=== PATIENT | female | born 2005 | race Two or more races ===

== ENCOUNTER 2025-04-18 11:14 | Outpatient (AMB) | payer MEDICAID, SELFPAY ==
[2025-04-18 11:28] VITALS: BP 112/77; PULSE 86; RESP 17; TEMP 36.9; O2SAT 97; BMI 44.1
--- NOTE | 2025-04-18 11:28 | OBCLNT_ITS ---
Vital Signs 04/18/25 11:28 Height 1.57 m Height Method Measured Weight 109.429 kg Weight Measurement Method Standing Scale BMI 44.1 BP 112/77 Blood Pressure Source Automatic Cuff Blood Pressure Location Right Upper Arm Position Sitting Respiration 17 Pulse 86 Pulse Source Monitor Temp 98.5 F Temp Source Temporal Artery Scan Pulse Oximetry (%) 97 Oxygen Delivery Method Room Air Allergies/Home Meds Allergies & Medications Allergies No Known Allergies Allergy (Verified 04/18/25 11:29) Medication Reconciliation aspirin 81 mg tablet,delayed release (Adult Aspirin Regimen) 81 mg PO QDAY #60 tabs 04/18/25 [Rx] vitamin-ferrous fumarate 28 mg iron-folic acid 800 mcg tablet ( Vitamins with Minerals) 1 tab PO QDAY #60 tabs 04/18/25 [Rx] Intake Visit Data Collection New Patient or Established: New Patient (never been to [facility]) Reason for Visit:: OBI Consent obtained for Telemed Visit: No Seen by Clinical Staff ONLY (RN/MA): No Biomed Tech Required: No Do You Feel Safe at Home: Yes Authorities Contacted: N/A PCP or OBGYN visit in last 3 months: No Hx Now: Yes Are you currently on any form of Control: No Pain Present Currently: No Pain Scale Used: Ha-Paulson/Numerical Pain scale:: 0 Smoking Status Smoking Status: Never smoker Questionnaires Covid-19 Vaccine Questionnaire Has patient been vacinated for Covid-19 Have you been vacinated for Covid-19: No PHQ-9 PHQ-2 Over the last 2 weeks, how often have you been bothered by any of the following problems? 1. Little interest or pleasure in doing things: not at all 2. Feeling down, depressed, or hopeless: not at all Total score: 0 PHQ-9 3. Trouble falling or staying asleep, or sleeping too much: Not at all 4. Feeling tired or having little energy: Not at all 5. Poor appetite or overeating: Not at all 6. Feeling bad about yourself - or that you are a failure or have let yourself or your family down: Not at all 7. Trouble concentrating on things, such as reading the newspaper or watching television: Not at all 8. Moving or speaking so slowly that other people could have noticed? - Or the opposite - being so fidgety or restless that you have been moving around a lot more than usual: not at all 9. Thoughts that you would be better off or of hurting yourself in some way: Not at all Total score: 0 If you checked off any problems, how difficult have these problems made it for you to do your work, take care of things at home, or get along with other people?: not difficult at all Source: Developed by Drs. Aston Ramirez, Elizabeth Bro, Armando Sanchez and colleagues, with an educational tami from [employer]. Social History Living Situation History Lives With: Family Housing: House Tobacco History Smoking Status: Never smoker Alcohol History Alcohol Intake: Never Domestic Abuse History Do You Feel Safe at Home: Yes History of Present Illness HPI Narrative 19 yo for OBI. LMP 01/28/25. EDC 11/05/25. regular menses . q30. 2 menses in january. denies problem with first 2 deliveries. denies existing PMH, denies social habit and surgery. denies any sab s/s. OB Initial Visit OB Flowsheet OB Flowsheet Initial Weight: Not Recorded Date -?-?-?-?-?-?-?-?-?-?-?-?- EGA Weight BP Alb Glu CTX Pres Fundal ht FHR Mov Dilation Station Effacement Hx Notes Visit Note 04/18/25 -?-?-?-?-?-?-?-?-?-?-?-?- 11w 3d 109.429 kg 112/77 unknown 10 145 absent 19 yo , 11w3 by poor dates. denies sab complaints,no leaking or bleeding OB panel and NIPT today, schedule MFM appointment, discuss sab precaution, refill PNV and low dose asa, carrier screen, A1c ordered. rtc 4 week obc Menstrual History Menstrual reliability: definite Flow: heavy Menstrual regularity: regular Monthly: Yes Age at menarche: 11 On control pills at conception: No Date of positive home test: 03/16/25 OB History : 3 Para: 2 Hx # Pregnancies: 1 Hx Total # of Abortions (Spontaneous & Elective): 0 # of Living Children: 2 Delivery History 1st : Child's name: SLADE date: 12/03/20 sex: female Gestational age at delivery (weeks): 40 Delivery type: vaginal History of depression before or after : No 2nd : Child's name: GARETH date: 12/30/22 sex: female Gestational age at delivery (weeks): 37 Delivery type: vaginal History of depression before or after : No Infection History & Risk Evaluation History of STDs: none HIV risk evaluation: low risk Hepatitis B risk evaluation: low risk Patient or partner has history of Genital Herpes: No Genetic Screening & History Genetic Screening/Teratology Counseling - Includes patient, baby's father, or anyone in either family with: 1. Patient's age 35 years or older as of estimated date of delivery: No 2. Thalassemia (Maltese, Georgian, Mediterranean, or Background); MCV less than 80: No 3. Neural Tube Defect (Meningomyelocele, Spina Bifida, or Anencephaly): No 4. Congenital Heart Defect: No 5. Down Syndrome: No 6. Ezio-Sachs (Ashkenazi Pentecostal, Cajun, Mosotho Greene): No 7. Kassandra Disease (Ashkenazi Pentecostal): No 8. Familial Dysautonomia (Ashkenazi Pentecostal): No 9. Sickle Cell Disease or Trait (): No 10. Hemophilia or other blood disorders: No 11. Muscular Dystrophy: No 12. Cystic Fibrosis: No 13. Miles's Chorea: No 14. Mental Retardation/Autism: No 15. Other inherited genetic or chromosomal disorder: No 16. Maternal Metabolic Disorder (EG,TYPE 1 Diabetes, PKU): No 17. Patient or baby's father had a child with defects not listed above: No 18. Recurrent loss or a stillbirth: No 19. Medications (including supplements, vitamins, herbs or otc drugs)/illicit/re creational drugs/alcohol since last menstrual period: No 20. Any other: No Infection History 1. Live with someone with TB or exposed to TB: No 2. Rash or viral illness since last menstrual period: No 3. Hepatitis B,C: No Other (see comments) Source: [employer] Review of Systems Review of Systems Systems Reviewed: All systems reviewed, normal except as documented Exam General Limitations: no limitations General Appearance: alert, in no apparent distress, comfortable, cooperative, healthy appearing, well developed and well groomed Head Head exam: atraumatic, normocephalic and normal inspection Chest Chest inspection: Present normal inspection and symmetric chest wall rise Resp Respiratory exam: Present normal lung sounds bilaterally Psych Psychiatric exam: Present normal affect and normal mood Office Procedures OB Clinic LOC & Office Proc's Nursing/Assessment Patient Status: Established Patient OB Clinic Nursing Assessment: Medication Reconciliation, Update PMH in EMR and Vital Signs OB Clinic Coordination of Care: Complex Care and Chronic Disease 1-5, Consent,records obtained, informed consent, Education Simp Pt/Fam and 4+ Authorizations needed Special Needs: Heart tones Established Patient Charge Established Patient Point Assignment: 130 Established Patient Point Charge: EP Level 4 (120-155) Assessment & Plan Diagnosis / Problem List (1) Encounter for supervision of high risk in first trimester, antepartum: Status: Acute (2) Maternal obesity syndrome in first trimester: Status: Acute Plan discuss diet and weight gain, OB panel, NIPT,carrier screen and A1c today, refill pnv, low dose asa, schedule MFM appointment. sab precaution, rtc 4 wk obc Additional Plan Follow Up: 4 Weeks (obc)
== END 2025-04-18 11:52 | disposition home or self-care (01) ==
LOC: HODSOBC 11:14
PROVIDERS: Supervising Provider Advanced Practice Midwife; Visit Provider Advanced Practice Midwife
DX: O09.891 Supervision of other high risk pregnancies, first trimester (principal); O99.211 Obesity complicating pregnancy, first trimester; O26.841 Uterine size-date discrepancy, first trimester; Z3A.11 11 weeks gestation of pregnancy
CPT/HCPCS: 99214; G0463

== ENCOUNTER 2025-05-02 13:40 | Emergency (ER) | payer MEDICAID, SELFPAY ==
[2025-05-02 13:41] VITALS: BMI 43.9
[2025-05-02 13:49] VITALS: BP 131/85; PULSE 102; RESP 19; TEMP 37.1; O2SAT 98
[2025-05-02] MEDS: ONDANSETRON ODT 4 MG TABRAP PO (14:08)
--- NOTE | 2025-05-02 14:11 | PC.LAC ---
POISON CONTROL CONTACTED AND SPOKE WITH FREDDY. POISON CONTROL RECOMMENDATIONS FOR CMP, O2 FOR COMFORT, ZOFRAN FOR NAUSEA, AND MONITOR PATIENT TILL BACK TO BASELINE. DAY TRADER CHERYL MADE AWARE.
[2025-05-02 15:07] LABS: Alanine Aminotransferase 10 U/L (10-49); Albumin, Serum 4.3 gm/dL (3.5-5.0); Albumin/Globulin Ratio 1.5 (1.2-2.2); Alkaline Phosphatase 59 U/L (46-116); Anion Gap 12 (7-16); Aspartate Amino Transferase 16 U/L (0-34); BUN/Creatinine Ratio 8 Ratio (12-20); Bilirubin,Total 0.3 mg/dL (0.3-1.2); Blood Urea Nitrogen < 5 mg/dL (9-23); Calcium 9.1 mg/dL (8.3-10.6); Calcium (Corrected) 9.1 mg/dL (8.5-10.1); Carbon Dioxide 22.1 mMol/L (20.0-31.0); Chloride 105 mMol/L (98-107); Creatinine (Component) 0.6 mg/dL (0.6-1.3); Estimated Creatinine Clearance 175.2 mL/min (>60); Globulin 2.9 gm/dL (2.3-3.5); Glucose 90 mg/dL (74-106); Osmolality,Calculated 274 (275-295); Potassium 3.8 mMol/L (3.4-5.1); Sodium 139 mMol/L (136-145); Total Protein 7.2 gm/dL (5.7-8.2); eGFR > 60 See Note
--- NOTE | 2025-05-02 15:13 | EDNOTE_ITS ---
<Statement entered by Christie To MD - 05/02/25 17:10> As co-signing physician, I was present and available for consult prn. I concur with the plan and care as documented by the midlevel provider. ED Dizzyness RME/HPI General Chief Complaint: Dizziness Stated Complaint: DIZZY AND NAUSEA AFTER CLEANING THE MINI FRIDGE Time Seen by Provider: 05/02/25 13:50 Source: patient Arrival date/time: 05/02/25 13:40 19-year-old female with no known medical history presents to the emergency room with a chief complaint of dizziness and nausea. Patient states she was cleaning in her kitchen and began to inhale the smell of Clorox and other chemicals and began to feel the symptoms. Mode of arrival: ambulatory Limitations: no limitations Related Data Previous Rx's ?Medication ?Instructions ?Recorded aspirin 81 mg tablet,delayed 81 mg PO QDAY #60 tabs release (Adult Aspirin Regimen) vitamin-ferrous fumarate 1 tab PO QDAY #60 ta bs 04/18/25 28 mg iron-folic acid 800 mcg tablet ( Vitamins with Minerals) acetaminophen 325 mg tablet 325 mg PO QID PRN pain #60 tabs 04/27/25 (Tylenol) ondansetron HCl 4 mg tablet 4 mg PO Q8H PRN nausea and 04/27/25 vomiting #60 tabs Allergies Allergy/AdvReac Type Severity Reaction Status Date / Time No Known Allergies Allergy Verified 05/02/25 13:41 Review of Systems Review of Systems Systems Reviewed: All systems reviewed, normal except as documented Constitutional Constitutional: Reports system reviewed and no additional complaints, except as documented, Denies fatigue, Denies fever(s), Reports headache(s) and Reports weakness Eyes Eyes: Reports system reviewed and no additional complaints, except as documented, Denies blurry vision and Denies change in vision ENT Ears, Nose, Mouth, and Throat: Reports system reviewed and no additional complaints, except as documented, Denies otalgia, Reports headache(s), Denies nasal congestion, Denies throat swelling and Reports vertigo Cardiovascular Cardiovascular: Reports system reviewed and no additional complaints, except as documented, Denies chest pain, Denies dyspnea and Denies dyspnea on exertion Respiratory Respiratory: Reports system reviewed and no additional complaints, except as documented, Denies chest congestion, Denies cough, Denies dyspnea, Denies dyspnea on exertion and Denies wheezing Gastrointestinal Gastrointestinal: Reports system reviewed and no additional complaints, except as documented, Denies abdominal pain, Denies cramping, Denies nausea and Denies vomiting Genitourinary Genitourinary: Reports system reviewed and no additional complaints, except as documented Musculoskeletal Musculoskeletal: Reports system reviewed and no additional complaints, except as documented and Denies back pain Integumentary/Breasts Skin/Breast: Reports system reviewed and no additional complaints, except as documented and Denies wounds Neurologic Neurologic: Reports system reviewed and no additional complaints, except as documented, Denies confusion, Reports headache(s), Denies lack of coordination, Reports vertigo and Reports weakness Psychiatric Psychiatric: Reports system reviewed and no additional complaints, except as documented, Denies anxiety, Denies confusion, Denies depression, Denies paranoia, Denies suicidal ideation and Denies tactile hallucinations Endocrine Endocrine: Reports system reviewed and no additional complaints, except as documented and Denies fatigue Hematologic/Lymphatic Hematologic/Lymphatic: Reports system reviewed and no additional complaints, except as documented and Denies lymphadenopathy Allergic/Immunologic Allergic/Immunologic: Reports system reviewed and no additional complaints, except as documented, Denies throat swelling, Denies urticaria and Denies wheezing ED Exam General Limitations: Present no limitations General appearance: Present alert and in no apparent distress; Absent lethargic, obtunded or in distress Head Head exam: Present atraumatic Eye Eye exam: Present normal appearance, PERRL and EOMI ENT ENT exam: Present normal exam, normal oropharynx and mucous membranes moist Neck Neck exam: Present normal inspection, full ROM and trachea midline Chest Chest inspection: Present normal inspection and symmetric chest wall rise Respiratory Respiratory exam: Present normal lung sounds bilaterally; Absent respiratory dis tress, wheezes, stridor, accessory muscle use or prolonged expiratory phase Cardiovascular Cardiovascular exam: Present regular rate, normal rhythm, tachycardia and normal heart sounds Abdominal Exam Abdominal exam: Present soft and normal bowel sounds; Absent tenderness Extremities Exam Extremities exam: Present normal inspection and full ROM Back Exam Back exam: Present normal inspection and full ROM Neurological Exam Neurological exam: Present alert, oriented X3, CN II-XII intact, normal gait and reflexes normal Expanded Neurological Exam Patient oriented to: Present person, place and time Speech: Present fluid speech Coma scale eye opening: spontaneous Coma scale motor response: obeys commands Coma scale verbal response: oriented Coma scale total: 15 Psychiatric Psychiatric exam: Present normal affect and normal mood Skin Skin exam: Present warm, dry, intact and normal color Course Quality Measures none Orders Category Date Time Status EKG (ED ONLY) *Do not use* NOW Care 05/02/25 14:06 Completed EKG (ED Only) Stat Exams 05/02/25 14:06 Ordered CMP [Comprehensive Metabolic Panel] Stat Lab 05/02/25 14:22 Completed Acetaminophen Tab [Tylenol Tab] Med 05/02/25 15:14 Discontinued 650 mg PO X1 ONE Ondansetron Odt [Zofran Odt] Med 05/02/25 14:02 Discontinued 4 mg PO X1 ONE Vital Signs Vital signs: Vital Signs Temperature 98.8 F 05/02/25 13:49 Pulse Rate 102 H 05/02/25 13:49 Respiratory Rate 19 05/02/25 13:49 Blood Pressure 131/85 H 05/02/25 13:49 Pulse Oximetry (%) 98 05/02/25 13:49 Oxygen Delivery Method Room Air 05/02/25 13:49 Dizziness MDM Narrative MDM Narrative:: 19-year-old female with no known medical history presents to the emergency room with a chief complaint of dizziness and nausea. Patient states she was cleaning in her kitchen and began to inhale the smell of Clorox and other chemicals and began to feel the symptoms. Patient is hemodynamically stable and in no apparent distress Physical examination shows clear bilateral lung sounds there is no wheezing stridor or any abnormal breath sounds. Heart sounds are strong and regular S1 and S2 noted. EKG shows normal sinus rhythm. Patient has a normal neurological exam. Pupils are PERRLA EOMs are intact the patient is a GCS of 15 alert and oriented x 3 Poison control was consulted and the recommendations were to give the patient some oxygen, treat her nausea with some Zofran carefully monitor the patient for 3 hours I have greeted and performed a focused initial assessment of this patient. A comprehensive ED assessment and evaluation of the patient, analysis of all test results, and completion of the medical decision making process will be conducted by additional ED providers. Patient data External records reviewed:: [facility] previous records Clinical information provided by:: patient Social determinants that could affect healthcare access:: none Patient has the following chronic illnesses:: No chronic illness How is presenting disease/condition affected by chronic disease/condition?: no chronic disease Evaluation data The following diagnostics were reviewed and interpreted by me:: lab results and radiology exam(s) Lab and/or radiology exams considered but not ordered:: Labs and radiology exams considered in order Interpretation Summary: N/A Medications / Prescriptions Medications or Prescriptions considered but not ordered:: Medication given Medication administrations:: Medication Administration History Discontinued Medications Acetaminophen (Acetaminophen 325 Mg Tablet) 650 mg PO X1 ONE Stop: 05/02/25 15:15 Last Admin: 05/02/25 15:43 Dose: 650 mg Documented By: MADDI Ondansetron HCl (Ondansetron Odt 4 Mg Tabrap) 4 mg PO X1 ONE; Protocol Stop: 05/02/25 14:03 Last Admin: 05/02/25 14:08 Dose: 4 mg Documented By: MADDI Medication given Consultations Consultation(s) initiated? (list below): No Diagnosis Dizziness Differential Diagnosis: benign paroxysmal positional vertigo and other (Dizziness) Most likely diagnosis given after review of the tests above:: Dizziness Admission Indicated Admission indicated?: not indicated Admission Request Was there a request for admission?: No Disposition Plan Disposition Plan: Discharge Discharge Attestation Discharge Attestation: The patient and all family members were given an opportunity to ask questions and understood the discharge instructions. Discharge instructions specifically effects, indications for sooner follow up or return to the emergency department, and the expected course of current diagnosis. Patient condition: Stable Discharge Plan Plan Patient Disposition: HOME (Self Care) Discharge Disposition comment: Stable Prescriptions/Referrals Prescriptions/Med Rec: No Action vit-iron fum-folic ac [ Vitamin with Minerals] 28 mg iron- 800 mcg tablet 1 tab PO QDAY Qty: 60 3RF aspirin [Adult Aspirin Regimen] 81 mg tablet,delayed release (DR/EC) 81 mg PO QDAY Qty: 60 2RF ondansetron HCl 4 mg tablet 4 mg PO Q8H PRN (Reason: nausea and vomiting) Qty: 60 3RF acetaminophen [Tylenol] 325 mg tablet 325 mg PO QID PRN (Reason: pain) Qty: 60 1RF Referrals: Marissa Tucker [Primary Care Provider] - In 1 week Problem List Clinical Impression: Dizziness Patient/Caregiver Discharge Instructions Education Materials: ED Dizziness, Uncertain Cause Additional Instructions: Please follow-up with your primary care provider in the next 24 to 48 hours For any evidence of worsening signs or symptoms return to the emergency room immediately Print Language: Citizen Of The [place] Stand Alone Forms: Hyacinth Leon Info., Patient Portal Info Letter PA/SPORTS MANAGER Supervising Physician PA/SPORTS MANAGER Supervising Physician: Dr. TO
[2025-05-02] MEDS: ACETAMINOPHEN 325 MG TABLET 650 MG PO (15:43)
[2025-05-02 16:10] VITALS: BP 103/65; PULSE 95; RESP 16; TEMP 36.8; O2SAT 100
[2025-05-02 17:43] VITALS: BP 110/60; PULSE 87; RESP 18; TEMP 36.8; O2SAT 99
== END 2025-05-02 17:44 | disposition home or self-care (01) ==
PROVIDERS: Nurse Practitioner Family; Emergency Provider Emergency Medicine; PCP Physician Assistant
DX: R42 Dizziness and giddiness (principal); R94.31 Abnormal electrocardiogram [ECG] [EKG]
CPT/HCPCS: 36415; 80053; 93005; 99283; Q0162; A9270

== ENCOUNTER 2025-05-17 10:30 | Outpatient (AMB) | payer MEDICAID, SELFPAY ==
--- NOTE | 2025-05-17 10:39 | AMB.OBVISIT ---
Vital Signs 05/17/25 10:46 Height 1.57 m Height Method Stated Weight 105.857 kg Weight Measurement Method Standing Scale BMI 42.9 BP 102/71 Blood Pressure Source Automatic Cuff Blood Pressure Location Left Upper Arm Position Sitting Respiration 20 Pulse 90 Pulse Source Monitor Temp 98.4 F Temp Source Oral Pulse Oximetry (%) 98 Oxygen Delivery Method Room Air Allergies/Home Meds Allergies & Medications Allergies No Known Allergies Allergy (Verified 05/17/25 10:49) Medication Reconciliation aspirin 81 mg tablet,delayed release (Adult Aspirin Regimen) 81 mg PO QDAY #60 tabs 04/18/25 [Rx Confirmed 05/17/25] vitamin-ferrous fumarate 28 mg iron-folic acid 800 mcg tablet ( Vitamins with Minerals) 1 tab PO QDAY #60 tabs 04/18/25 [Rx Confirmed 05/17/25] ondansetron HCl 4 mg tablet 4 mg PO Q8H PRN nausea and vomiting #60 tabs 04/27/25 [Rx Confirmed 05/17/25] Intake Visit Data Collection New Patient or Established: Established Patient (seen at [facility] within 3 years) Reason for Visit:: CARE Seen by Clinical Staff ONLY (RN/MA): No Legal Billing Clerk Required: No Do You Feel Safe at Home: Yes Authorities Contacted: N/A PCP or OBGYN visit in last 3 months: Yes Hx Now: Yes Are you currently on any form of Control: No Pain Present Currently: No Pain Scale Used: Ha-Paulson/Numerical Pain scale:: 0 Smoking Status Smoking Status: Never smoker Questionnaires Covid-19 Vaccine Questionnaire Has patient been vacinated for Covid-19 Have you been vacinated for Covid-19: No PHQ-9 PHQ-2 Over the last 2 weeks, how often have you been bothered by any of the following problems? 1. Little interest or pleasure in doing things: not at all 2. Feeling down, depressed, or hopeless: not at all Total score: 0 PHQ-9 3. Trouble falling or staying asleep, or sleeping too much: Not at all 4. Feeling tired or having little energy: Not at all 5. Poor appetite or overeating: Not at all 6. Feeling bad about yourself - or that you are a failure or have let yourself or your family down: Not at all 7. Trouble concentrating on things, such as reading the newspaper or watching television: Not at all 8. Moving or speaking so slowly that other people could have noticed? - Or the opposite - being so fidgety or restless that you have been moving around a lot more than usual: not at all 9. Thoughts that you would be better off or of hurting yourself in some way: Not at all Total score: 0 Source: Developed by Drs. Aston Ramirez, Elizabeth Bro, Armando Sanchez and colleagues, with an educational tami from [employer]. Depression screen completed yes Social History Living Situation History Lives With: Family Housing: House Tobacco History Smoking Status: Never smoker Alcohol History Alcohol Intake: Never Domestic Abuse History Do You Feel Safe at Home: Yes Care OB Visit Log OB Flowsheet Initial Weight: Not Recorded Date <del>?</del> EGA Weight BP Alb Glu CTX Pres Fundal ht FHR Mov Dilation Station Effacement Hx Notes Visit Note 04/18/25 <del>?</del> 11w 3d 109.429 kg 112/77 unknown 10 145 absent 19 yo , 11w3 by poor dates. denies sab complaints,no leaking or bleeding OB panel and NIPT today, schedule MFM appointment, discuss sab precaution, refill PNV and low dose asa, carrier screen, A1c ordered. rtc 4 week obc 05/17/25 <del>?</del> 15w 4d 105.857 kg 102/71 absent unknown 15 145 active Complains of increased cramps. No bleeding or leaking. Light movement. No complaints of nausea and vomiting. MFM sono is pending awaiting approval. aFP today. Reviewed labs today. Increase fluids. Continue vitamins. Danger signs. Return in 4 weeks OB check MARCOS Calculator Estimated Delivery Date Method Current WG Current Estimate 11/04/25 LMP (Uncertain) 15w 4d Notes Visit Date: 05/17/25 Last Updated by: Nathalia Byrne CNM 19 yo . poor date. LMP 01/28/25. EDC: 11/04/25. ob: O+,abs-,rpr;;nr, rub imm, hbsag-, hiv-, GCCT-UA-HC-, ,310, NIPT/Carrier screen-/female, A1: 5.0 Visit Date: 04/18/25 Last Updated by: Nathalia Byrne CNM EDC 10/3125 by lmp Office Procedures OB Clinic LOC & Office Proc's Nursing/Assessment Patient Status: Established Patient OB Clinic Nursing Assessment: Medication Reconciliation, Update PMH in EMR and Vital Signs OB Clinic Coordination of Care: Complex Care and Chronic Disease 1-5, Consent,records obtained, informed consent, Education Simp Pt/Fam, 1 Ins Authorization, Lab and Imaging orders, Results/Orders obtained and Staff clarify orders Special Needs: Heart tones Established Patient Charge Established Patient Point Assignment: 150 Established Patient Point Charge: EP Level 4 (120-155) Assessment & Plan Diagnosis / Problem List (1) Encounter for supervision of high risk in second trimester, antepartum: Status: Acute Plan aFP today. [facility] sono referral was sent and awaiting verification. Discussed SAB precautions. Increase fluids. Continue vitamins return in 4 weeks OB Additional Plan Follow Up: 4 Weeks (obc)
[2025-05-17 10:46] VITALS: BP 102/71; PULSE 90; RESP 20; TEMP 36.9; O2SAT 98; BMI 42.9
== END 2025-05-17 11:20 | disposition home or self-care (01) ==
PROVIDERS: Supervising Provider Advanced Practice Midwife; Visit Provider Advanced Practice Midwife
DX: O09.892 Supervision of other high risk pregnancies, second trimester (principal); O26.842 Uterine size-date discrepancy, second trimester; Z3A.15 15 weeks gestation of pregnancy
CPT/HCPCS: 99214; G0463

== ENCOUNTER 2025-06-14 10:34 | Outpatient (AMB) | payer MEDICAID, SELFPAY ==
[2025-06-14 10:45] VITALS: BP 104/71; PULSE 89; RESP 16; TEMP 36.2; O2SAT 98; BMI 41.9
--- NOTE | 2025-06-14 10:45 | AMB.OBVISIT ---
Vital Signs 06/14/25 10:45 Height 1.57 m Height Method Stated Weight 103.419 kg Weight Measurement Method Standing Scale BMI 41.9 BP 104/71 Blood Pressure Source Automatic Cuff Blood Pressure Location Left Upper Arm Position Sitting Respiration 16 Pulse 89 Pulse Source Monitor Temp 97.2 F Temp Source Oral Pulse Oximetry (%) 98 Oxygen Delivery Method Room Air Allergies/Home Meds Allergies & Medications Allergies No Known Allergies Allergy (Verified 06/14/25 10:46) Medication Reconciliation aspirin 81 mg tablet,delayed release (Adult Aspirin Regimen) 81 mg PO QDAY #60 tabs 04/18/25 [Rx Confirmed 06/14/25] vitamin-ferrous fumarate 28 mg iron-folic acid 800 mcg tablet ( Vitamins with Minerals) 1 tab PO QDAY #60 tabs 04/18/25 [Rx Confirmed 06/14/25] ondansetron HCl 4 mg tablet 4 mg PO Q8H PRN nausea and vomiting #60 tabs 04/27/25 [Rx Confirmed 06/14/25] Intake Visit Data Collection New Patient or Established: Established Patient (seen at [facility] within 3 years) Reason for Visit:: OBC Seen by Clinical Staff ONLY (RN/MA): No Home Energy Rater Required: No Do You Feel Safe at Home: Yes Authorities Contacted: N/A PCP or OBGYN visit in last 3 months: Yes Date of Last PCP or OBGYN visit: 05/17/25 Hx Now: Yes Are you currently on any form of Control: No Pain Present Currently: No Pain Scale Used: Ha-Paulson/Numerical Pain scale:: 0 Smoking Status Smoking Status: Never smoker Questionnaires Covid-19 Vaccine Questionnaire Has patient been vacinated for Covid-19 Have you been vacinated for Covid-19: No PHQ-9 PHQ-2 Over the last 2 weeks, how often have you been bothered by any of the following problems? 1. Little interest or pleasure in doing things: not at all 2. Feeling down, depressed, or hopeless: not at all Total score: 0 PHQ-9 3. Trouble falling or staying asleep, or sleeping too much: Not at all 4. Feeling tired or having little energy: Not at all 5. Poor appetite or overeating: Not at all 6. Feeling bad about yourself - or that you are a failure or have let yourself or your family down: Not at all 7. Trouble concentrating on things, such as reading the newspaper or watching television: Not at all 8. Moving or speaking so slowly that other people could have noticed? - Or the opposite - being so fidgety or restless that you have been moving around a lot more than usual: not at all 9. Thoughts that you would be better off or of hurting yourself in some way: Not at all Total score: 0 If you checked off any problems, how difficult have these problems made it for you to do your work, take care of things at home, or get along with other people?: not difficult at all Source: Developed by Drs. Aston Ramirez, Elizabeth Bro, Armando Sanchez and colleagues, with an educational tami from [email or web address]. Depression screen completed yes Social History Living Situation History Lives With: Family Housing: House Tobacco History Smoking Status: Never smoker Second Hand Smoke Exposure: No Alcohol History Alcohol Intake: Never Domestic Abuse History Do You Feel Safe at Home: Yes Care OB Visit Log OB Flowsheet Initial Weight: Not Recorded Date <del>?</del> EGA Weight BP Alb Glu CTX Pres Fundal ht FHR Mov Dilation Station Effacement Hx Notes Visit Note 04/18/25 <del>?</del> 11w 3d 109.429 kg 112/77 unknown 10 145 absent 19 yo , 11w3 by poor dates. denies sab complaints,no leaking or bleeding OB panel and NIPT today, schedule MFM appointment, discuss sab precaution, refill PNV and low dose asa, carrier screen, A1c ordered. rtc 4 week obc 05/17/25 <del>?</del> 15w 4d 105.857 kg 102/71 absent unknown 15 145 active Complains of increased cramps. No bleeding or leaking. Light movement. No complaints of nausea and vomiting. MFM sono is pending awaiting approval. aFP today. Reviewed labs today. Increase fluids. Continue vitamins. Danger signs. Return in 4 weeks OB check 06/14/25 <del>?</del> 19w 4d 103.419 kg 104/71 absent unknown 20 140 active Patient needs a note to work. Reports movement. Denies symptoms. No OB complaints MFM sono still pending. Discussed AFP. Note to continue working during the . Discussed signs symptoms of labor. Return in 4 weeks OB check MARCOS Calculator Estimated Delivery Date Method Current WG Current Estimate 11/04/25 LMP (Uncertain) 19w 4d Notes Visit Date: 06/14/25 Last Updated by: Nathalia Byrne CNM 06/14: AFP- Visit Date: 05/17/25 Last Updated by: Nathalia Byrne CNM 19 yo . poor date. LMP 01/28/25. EDC: 11/04/25. ob: O+,abs-,rpr;;nr, rub imm, hbsag-, hiv-, GCCT-UA-HC-, ,310, NIPT/Carrier screen-/female, A1: 5.0 Visit Date: 04/18/25 Last Updated by: Nathalia Byrne CNM EDC 10/3125 by lmp Office Procedures OB Clinic LOC & Office Proc's Nursing/Assessment Patient Status: Established Patient OB Clinic Nursing Assessment: Medication Reconciliation, Update PMH in EMR and Vital Signs OB Clinic Coordination of Care: Education Complex Pt/Fam, Consent,records obtained, informed consent, Lab and Imaging orders and Staff clarify orders Special Needs: Heart tones Established Patient Charge Established Patient Point Assignment: 110 Established Patient Point Charge: EP Level 3 (80-115) Assessment & Plan Diagnosis / Problem List (1) Encounter for supervision of high risk in second trimester, antepartum: Status: Acute Plan Note to continue working. Discussed labor precautions. MFM ultrasound pending. Discussed negative AFP. Return in 4 weeks OB check Additional Plan Follow Up: 4 Weeks (obc)
== END 2025-06-14 10:56 | disposition home or self-care (01) ==
LOC: HODSOBC 10:34
PROVIDERS: Supervising Provider Advanced Practice Midwife; Visit Provider Advanced Practice Midwife
DX: O09.92 Supervision of high risk pregnancy, unspecified, second trimester (principal); Z3A.19 19 weeks gestation of pregnancy; Z79.82 Long term (current) use of aspirin
CPT/HCPCS: 99213; G0463

== ENCOUNTER 2025-07-15 08:57 | Outpatient (AMB) | payer MEDICAID, SELFPAY ==
--- NOTE | 2025-07-15 09:01 | OBCLNT_ITS ---
Vital Signs 07/15/25 09:03 Height 1.57 m Height Method Stated Weight 101.151 kg Weight Measurement Method Standing Scale BMI 41.0 BP 100/64 Blood Pressure Source Automatic Cuff Blood Pressure Location Left Upper Arm Position Sitting Respiration 16 Pulse 71 Pulse Source Monitor Temp 97.2 F Temp Source Oral Pulse Oximetry (%) 98 Oxygen Delivery Method Room Air Allergies/Home Meds Allergies & Medications Allergies No Known Allergies Allergy (Verified 07/15/25 09:09) Medication Reconciliation aspirin 81 mg tablet,delayed release (Adult Aspirin Regimen) 81 mg PO QDAY #60 tabs 04/18/25 [Rx Confirmed 07/15/25] vitamin-ferrous fumarate 28 mg iron-folic acid 800 mcg tablet ( Vitamins with Minerals) 1 tab PO QDAY #60 tabs 04/18/25 [Rx Confirmed 07/15/25] ondansetron HCl 4 mg tablet 4 mg PO Q8H PRN nausea and vomiting #60 tabs 04/27/25 [Rx Confirmed 07/15/25] aspirin 81 mg tablet,delayed release (Adult Aspirin Regimen) 81 mg PO QDAY #30 tabs 07/15/25 [Rx] Intake Visit Data Collection New Patient or Established: Established Patient (seen at [facility] within 3 years) Reason for Visit:: OBC Seen by Clinical Staff ONLY (RN/MA): No Worksite Wellness Practitioner Required: No Do You Feel Safe at Home: Yes Authorities Contacted: N/A PCP or OBGYN visit in last 3 months: Yes Date of Last PCP or OBGYN visit: 06/14/25 Hx Now: Yes Are you currently on any form of Control: No Pain Present Currently: No Pain Scale Used: Ha-Paulson/Numerical Pain scale:: 0 Smoking Status Smoking Status: Never smoker Questionnaires Covid-19 Vaccine Questionnaire Has patient been vacinated for Covid-19 Have you been vacinated for Covid-19: Yes PHQ-9 PHQ-2 Over the last 2 weeks, how often have you been bothered by any of the following problems? 1. Little interest or pleasure in doing things: not at all 2. Feeling down, depressed, or hopeless: not at all Total score: 0 PHQ-9 3. Trouble falling or staying asleep, or sleeping too much: Not at all 4. Feeling tired or having little energy: Not at all 5. Poor appetite or overeating: Not at all 6. Feeling bad about yourself - or that you are a failure or have let yourself or your family down: Not at all 7. Trouble concentrating on things, such as reading the newspaper or watching television: Not at all 8. Moving or speaking so slowly that other people could have noticed? - Or the opposite - being so fidgety or restless that you have been moving around a lot more than usual: not at all 9. Thoughts that you would be better off or of hurting yourself in some way: Not at all Total score: 0 If you checked off any problems, how difficult have these problems made it for you to do your work, take care of things at home, or get along with other people?: not difficult at all Source: Developed by Drs. Aston Ramirez, Elizabeth Bro, Armando Sanchez and colleagues, with an educational tami from [employer] Depression screen completed yes Social History Living Situation History Marital Status: Single Lives With: Family Housing: House Tobacco History Smoking Status: Never smoker Second Hand Smoke Exposure: No Alcohol History Alcohol Intake: Never Domestic Abuse History Do You Feel Safe at Home: Yes Care OB Visit Log OB Flowsheet Initial Weight: Not Recorded Date -?-?-?-?-?-?-?-?-?-?-?-?- EGA Weight BP Alb Glu CTX Pres Fundal ht FHR Mov Dilation Station Effacement Hx Notes Visit Note 04/18/25 -?-?-?-?-?-?-?-?-?-?-?-?- 7w 4d 109.429 kg 112/77 unknown 10 145 a bsent 19 yo , 11w3 by poor dates. denies sab complaints,no leaking or bleeding OB panel and NIPT today, schedule MFM appointment, discuss sab precaution, refill PNV and low dose asa, carrier screen, A1c ordered. rtc 4 week obc 05/17/25 -?-?-?-?-?-?-?-?-?-?-?-?- 11w 5d 105.857 kg 102/71 absent unknown 15 145 active Complains of increased cramps. No bleeding or leaking. Light movement. No complaints of nausea and vomiting. MFM son o is pending awaiting approval. aFP today. Reviewed labs today. Increase fluids. Continue vitamins. Danger signs. Return in 4 weeks OB check 06/14/25 -?-?-?-?-?-?-?-?-?-?-?-?- 15w 5d 103.419 kg 104/71 absent unknown 20 140 active Patient needs a note to work. Reports movement. Denies symptoms. No OB complaints MFLevi sono still pending. Discussed AFP. Note to continue working during the . Discussed signs symptoms of labor. Return in 4 weeks OB check 07/15/25 -?-?-?-?-?-?-?-?-?-?-?-?- 20w 1d 101.151 kg 100/64 absent unknown 20 140 active Doing well. Reports movement. Denies leaking, bleeding, contractions. EDC was changed to December 01, 2025 Follow-up [facility]- medicine appointment August 12, 2025. aFP and SMA today. Discussed labor precautions. Return in 4 we eks OB check. Low-dose baby aspirin start today. MARCOS Calculator Estimated Delivery Date Method Current WG Current Estimate 12/01/25 Ultrasound #1 20w 1d Other Estimates 11/04/25 LMP (Uncertain) 24w 0d 12/01/25 Manual 20w 1d final marcos: 12/01. changed edc/wrong dates Notes Visit Date: 07/15/25 Last Updated by: Nathalia Byrne CNM 07/08/25:IUP 19wk 1. CEDC: 12/01/25 Visit Date: 06/14/25 Last Updated by: Nathalia Byrne CNM 06/14: AFP- Visit Date: 05/17/25 Last Updated by: Nathalia Byrne CNM 19 yo . poor date. LMP 01/28/25. EDC: 11/04/25. ob: O+,abs-,rpr;;nr, rub imm, hbsag-, hiv-, GCCT-UA-HC-, ,310, NIPT/Carrier screen-/female, A1: 5.0 Visit Date: 04/18/25 Last Updated by: Nathalia Byrne CNM EDC 10/3125 by lmp Office Procedures OBC Clinic LOC & Office Proc's Nursing/Assessment Patient Status: Established Patient OB Clinic Nursing Assessment: Medication Reconciliation, Update PMH in EMR and Vital Signs OB Clinic Coordination of Care: Consent,records obtained, informed consent, Education Simp Pt/Fam, Lab and Imaging orders, Results/Orders obtained and Staff clarify orders Special Needs: Heart tones Established Patient Charge Established Patient Point Assignment: 110 Established Patient Point Charge: EP Level 3 (80-115) Assessment & Plan Diagnosis / Problem List (1) Encounter for supervision of high risk in second trimester, antepartum: Status: Acute Plan Low-dose baby aspirin. Discussed dates. Corrected EDC to December 01, 2025. Discussed labor precautions. Will start low-dose baby aspirin. 81 mg daily. Discussed diet and weight gain. Walk 40 minutes a day. Return in 4 weeks OB check Additional Plan Follow Up: 4 Weeks (obc)
[2025-07-15 09:03] VITALS: BP 100/64; PULSE 71; RESP 16; TEMP 36.2; O2SAT 98; BMI 41.0
== END 2025-07-15 09:43 | disposition home or self-care (01) ==
PROVIDERS: Supervising Provider Advanced Practice Midwife; Visit Provider Advanced Practice Midwife
DX: O09.92 Supervision of high risk pregnancy, unspecified, second trimester (principal); Z3A.20 20 weeks gestation of pregnancy
CPT/HCPCS: 99213; G0463

== ENCOUNTER 2025-08-03 18:52 | Observation (INO) | payer MEDICAID, SELFPAY ==
[2025-08-03 19:02] VITALS: BMI 41.8
[2025-08-03 19:08] VITALS: BP 109/66; PULSE 89
[2025-08-03 19:12] VITALS: BP 109/66; PULSE 89; RESP 18; RESP 99; TEMP 36.8
[2025-08-03 20:27] LABS: Collection Type, Urine Clean Catch
[2025-08-03 20:54] LABS: Bacteria,Urine 3+; Bilirubin,Urine Negative (Negative); Blood,Urine Negative (Negative); Clarity,Urine Clear (Clear/Hazy); Color,Urine Lt-Yellow (Lt Yel-Yel); Glucose, Urine Negative (Negative); Ketones,Urine Negative (Negative); Leukocyte Esterase,Urine Positive (Negative); Nitrite,Urine Negative (Negative); PH,Urine 7.0 (5.0-7.0); Protein,Urine Negative (Neg - Trace); RBC,Urine 3 /hpf (0-3); Specific Gravity,Urine 1.007 (1.001-1.035); Squamous Epithelial Cell,Urine 2 /hpf (0-5); Urobilinogen,Urine Negative mg/dL (0.0-1.0); WBC,Urine 1 /hpf (0-5)
--- NOTE | 2025-08-03 21:13 | PD.EVENT ---
Documentation for date of: 08/03/25 Event Note Event Note: The patient is a 19-year-old G3, P2 at 22+ weeks who presented to triage with headache and abdominal cramping. Urinalysis was positive for 3+ bacteria and leukocyte esterase. Macrobid 100 mg given x 1 in OB triage. Urine culture ordered. Patient had a headache , and her blood pressure is normal. She was given Tylenol 650 mg and discharged home to follow-up in the office to see Nathalia Byrne CNM as needed. Call the office in 2 days for urine culture results. Patient was not found to be janet. heart tones were present. No bleeding or loss of fluids.
[2025-08-03] MEDS: ACETAMINOPHEN 500 MG TABLET 1000 MG PO (21:23)
[2025-08-03] MEDS: NITROFURANTOIN MACRO 100 MG CAPSULE PO (21:24)
== END 2025-08-03 21:35 | disposition home or self-care (01) ==
PROVIDERS: Admitting Provider Obstetrics & Gynecology; Visit Provider Obstetrics & Gynecology
DX: O26.892 Other specified pregnancy related conditions, second trimester (principal); R51.9 Headache, unspecified; R10.9 Unspecified abdominal pain; O99.891 Other specified diseases and conditions complicating pregnancy; N89.8 Other specified noninflammatory disorders of vagina; Z3A.22 22 weeks gestation of pregnancy
CPT/HCPCS: 59899; 81001; 87086; A9270

== ENCOUNTER 2025-09-08 09:47 | Outpatient (AMB) | payer MEDICAID, SELFPAY ==
[2025-09-08 09:55] VITALS: BP 106/68; PULSE 95; RESP 18; TEMP 36.8; O2SAT 98; BMI 41.4
--- NOTE | 2025-09-08 09:55 | OBCLNT_ITS ---
Vital Signs 09/08/25 09:55 Height 1.57 m Height Method Stated Weight 102.115 kg Weight Measurement Method Standing Scale BMI 41.4 BP 106/68 Blood Pressure Source Automatic Cuff Blood Pressure Location Left Upper Arm Position Sitting Respiration 18 Pulse 95 Pulse Source Monitor Temp 98.2 F Temp Source Oral Pulse Oximetry (%) 98 Oxygen Delivery Method Room Air Allergies/Home Meds Allergies & Medications Allergies No Known Allergies Allergy (Verified 09/08/25 10:01) Medication Reconciliation aspirin 81 mg tablet,delayed release (Adult Aspirin Regimen) 81 mg PO QDAY #60 tabs 04/18/25 [Rx Confirmed 09/08/25] vitamin-ferrous fumarate 28 mg iron-folic acid 800 mcg tablet ( Vitamins with Minerals) 1 tab PO QDAY #60 tabs 04/18/25 [Rx Confirmed 09/08/25] ondansetron HCl 4 mg tablet 4 mg PO Q8H PRN nausea and vomiting #60 tabs 04/27/25 [Rx Confirmed 09/08/25] aspirin 81 mg tablet,delayed release (Adult Aspirin Regimen) 81 mg PO QDAY #30 tabs 07/15/25 [Rx Confirmed 09/08/25] Immunizations Immunizations Flu Vaccine in the Last 12 Months: No Flu Vaccine Exclusion Criteria: Refused by Patient Care OB Visit Log OB Flowsheet Initial Weight: Not Recorded Date -?-?-?-?-?-?-?-?-?-?-?-?- EGA Weight BP Alb Glu CTX Pres Fundal ht FHR Mov Dilation Station Effacement Hx Notes Visit Note 04/18/25 -?-?-?-?--?-?-?-?-?-?-?-?- 7w 4d 109.429 kg 112/77 unknown 10 145 a bsent 19 yo , 11w3 by poor dates. denies sab complaints,no leaking or bleeding OB panel and NIPT today, schedule MFM appointment, discuss sab precaution, refill PNV and low dose asa, carrier screen, A1c ordered. rtc 4 week obc 05/17/25 -?-?-?-?-?-?-?-?-?-?-?-?- 11w 5d 105.857 kg 102/71 absent unknown 15 145 active Complains of increased cramps. No bleeding or leaking. Light movement. No complaints of nausea and vomiting. MFM sono is pending awaiting approval. aFP today. Reviewed labs today. Increase fluids. Continue vitamins. Danger signs. Return in 4 weeks OB check 06/14/25 -?-?-?-?-?--?-?-?-?-?-?-?- 15w 5d 103.419 kg 104/71 absent unknown 20 140 active Patient needs a note to work. Reports movement. Denies symptoms. No OB complaints MFM sono still pending. Discussed AFP. Note to continue working during the . Discussed signs symptoms of labor. Return in 4 weeks OB check 07/15/25 -?-?-?-?-?-?-?-?-?-?-?-?- 20w 1d 101.151 kg 100/64 absent unknown 20 140 active Doing well. Reports movement. Denies leaking, bleeding, contractions. EDC was changed to December 01, 2025 Follow-up [facility]- medicine appointment August 12, 2025. aFP and SMA today. Discussed labor precautions. Return in 4 weeks OB check. Low-dose baby aspirin start today. 08/11/25 -?-?-?-?-?-?-?-?-?-?-?-?- 24w 0d 102.285 kg 106/71 absent unknown 24 154 active Patient was seen in labor and delivery 4 days ago for increased cramping and pressure x 2 days. Urine culture was negative. Pending no bleeding or contractions today. Reports good movement Discussed pr eterm labor precautions. Increase fluids. I discussed her labs. Increase fluids. [facility] appointment tomorrow morning. In third trimester labs 09/08/25 -?-?-?-?-?-?-?-?-?-?-?-?- 28w 0d 102.115 kg 106/68 absent unknown 28 145 active Patient works at a store as a restaurant cashier. Complains of some swelling in her toes at the end of work. Reports good movement. Denies labor contractions. No bleeding, no leaking. Reports good movement patient declined both Tdap and flu Discussed labor precautions. We did give the handout for Tdap. Patient has a follow-up [facility] September 16. And return in 4 weeks OB check and start disability MARCOS Calculator Estimated Delivery Date Method Current WG Current Estimate 12/01/25 Ultrasound #1 28w 0d Other Estimates 11/04/25 LMP (Uncertain) 31w 6d 12/01/25 Ultrasound #2 28w 0d 12/01/25 Manual 28w 0d final marcos: 12/01. changed edc/wrong dates Notes Visit Date: 09/08/25 Last Updated by: Nathalia Byrne CNM 3rd tri labs: wnl, 1 hr gtt wnl sono 08/12: efw: 80% Visit Date: 08/11/25 Last Updated by: Nathalia Byrne CNM AFP/ carrier screen- Visit Date: 07/15/25 Last Updated by: Nathalia Byrne CNM 07/08/25:IUP 19wk 1. CEDC: 12/01/25 Visit Date: 06/14/25 Last Updated by: Nathalia Byrne CNM 06/14: AFP- Visit Date: 05/17/25 Last Updated by: Nathalia Byrne CNM 19 yo . poor date. LMP 01/28/25. EDC: 11/04/25. ob: O+,abs-,rpr;;nr, rub imm, hbsag-, hiv-, GCCT-UA-HC-, /,310, NIPT/Carrier screen-/female, A1: 5.0 Visit Date: 04/18/25 Last Updated by: Nathalia Byrne CNM EDC 10/3125 by lmp Office Procedures OBC Clinic LOC & Office Proc's Nursing/Assessment Patient Status: Established Patient OB Clinic Nursing Assessment: Medication Reconciliation, Update PMH in EMR and Vital Signs OB Clinic Coordination of Care: Complex Care and Chronic Disease 1-5, Consent,records obtained, informed consent, Education Simp Pt/Fam, 1 Ins Authorization, Lab and Imaging orders, Results/Orders obtained and Staff clarify orders Special Needs: Heart tones Established Patient Charge Established Patient Point Assignment: 150 Established Patient Point Charge: EP Level 4 (120-155) Assessment & Plan Diagnosis / Problem List (1) Encounter for supervision of high risk in third trimester, antepartum: Status: Acute Plan Discussed labor precautions. Disability next visit. Avoid salt for swelling. Repeat medicine sonogram September 23. Return in 3 weeks OB check Additional Plan Follow Up: 3 Weeks (obc)
== END 2025-09-08 10:25 | disposition home or self-care (01) ==
LOC: HODSOBC 09:47
PROVIDERS: Supervising Provider Advanced Practice Midwife; Visit Provider Advanced Practice Midwife
DX: O09.893 Supervision of other high risk pregnancies, third trimester (principal); O99.891 Other specified diseases and conditions complicating pregnancy; R22.40 Localized swelling, mass and lump, unspecified lower limb; Z3A.28 28 weeks gestation of pregnancy; Z28.21 Immunization not carried out because of patient refusal
CPT/HCPCS: 99214; G0463